=== PATIENT | male | born 1930 | race African-American/Black ===

== ENCOUNTER 2017-01-11 08:38 | Inpatient (IN) | payer MEDICARE, BC ==
--- NOTE | ~2017-01-11 | CN ---
Consultation Report [facility] [address] [facility] [place]. [address] NAME: GERALDO HAMPTON : 30 STATUS : ADM IN PAT#: [id number] AGE: 86 ADM/REG DATE : 01/11/17 MR#: [id number] REPORT SERV DATE: 01/12/17 DICTATED BY: VILMA MCKEON DATE: 01/11/17 REPORT STATUS : Draft TRANSCRIBED BY: MODL DATE: 01/11/17 SURGERY CONSULT DATE OF CONSULTATION: HISTORY OF PRESENT ILLNESS: This is an 86-year-old male, here with a five-day history of acute abdominal pain in his epigastrium, right upper quadrant, radiates to the back. He has never had any pain like this before. Pain is constant and had no real relief. He was in the ER on Thursday with similar pain, gotten pain medications, and pain has not really improved with the medication. 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 This was all diagnosed approximately three to four months ago. He is followed by Dr. Jacob Frias. Ultrasound today showed a distended gallbladder and no pericholecystic fluid just consistent with stones, gallbladder wall was mildly thickened at 4 mm. PAST MEDICAL HISTORY: Adenocarcinoma of the right lung, history of prostate cancer, diabetes, hypertension, he is status post right upper lobectomy by Dr. Avalos. 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 PAST SURGICAL HISTORY: Appendectomy, an exploratory laparotomy for some kind of gastric ulcer disease remotely, prostate radiation. REVIEW OF SYSTEMS: A 10-point review of systems negative except for mentioned in the HPI. PHYSICAL EXAMINATION: GENERAL: Alert and oriented. The patient appears to be uncomfortable in pain. VITAL SIGNS: Blood pressure 190/67, heart rate 105, temperature 98.6, respirations 16, greater than 95% on room air. HEENT: Normocephalic, atraumatic. NECK: Supple. No lymphadenopathy. CARDIOVASCULAR: Sinus tach. LUNGS: Clear. Bilateral chest wall movement. ABDOMEN: Tender in the epigastrium. Tender in the right upper quadrant. No rebound tenderness. No focal peritoneal signs. ASSESSMENT: An 86-year-old male with acute onset of right upper quadrant epigastric pain, symptomatic cholelithiasis, possible acute cholecystitis, pain also could be coming from his metastatic liver lesions. PLAN: We will admit the patient to the Medicine team for pain control and IV antibiotics. We will re-evaluate the patient in the morning for possible need for laparoscopic cholecystectomy. We will try nonoperative treatment at this time as this patient is a poor surgical candidate. Pain could be stemming from liver metastasis or . Consultation Report [address] [place]. [address] NAME: GERALDO HAMPTON : 30 STATUS : ADM IN PAT#: [id number] AGE: 86 ADM/REG DATE : 01/11/17 MR#: [id number] REPORT SERV DATE: 01/12/17 DICTATED BY: VILMA MCKEON DATE: 01/11/17 REPORT STATUS : Draft TRANSCRIBED BY: VARSHA DATE: 01/11/17 DICTATED BY: Lior Kaur MD CB/VARSHA Vilma Mckeon MD / [id number] CC: FARIDA ERICKSON M.D.
--- NOTE | ~2017-01-11 | HP ---
History And Physical [facility] [address] [facility] [place]. [address] NAME: GERALDO HAMPTON : 30 STATUS : ADM IN PAT#: [id number] AGE: 86 ADM/REG DATE : 01/11/17 MR#: [id number] REPORT SERV DATE: 01/11/17 DICTATED BY: DENAE ORR DATE: 01/11/17 REPORT STATUS : Draft TRANSCRIBED BY: MODL DATE: 01/11/17 DATE OF ADMISSION: 01/11/2017 CHIEF COMPLAINT: Epigastric and right upper abdominal pain, radiating to the back; intractable nausea and vomiting for about five to six days. HISTORY OF PRESENT ILLNESS: This is a very pleasant, 86-year-old gentleman. He has a history of metastatic lung cancer to the liver as well as prostate cancer that he received radiation treatment. The patient has had a right lobectomy. Currently, he is not receiving any treatment. He is under the care of Dr. Frias. His primary care provider is Dr. Gonzales Mueller. Presenting today to [facility], accompanied by his family with some right upper quadrant abdominal pain that started couple of days ago, radiating to the back, and some nausea and vomiting, and significant decreased appetite. It is important to note that the patient has been seen in the emergency room on the . He has been evaluated, treated with some pain and nausea medication and discharged home. However, the patient's symptoms have got worse, and as a result, the patient presented to [facility]. It is also important to note that the patient has liver metastatic disease and as I said history of lung cancer. The patient denies any hematemesis, melena. No hematochezia. No other complaints. It is important to note that two days ago on , the patient underwent a CT of the abdomen and pelvis, showing no GI or obstruction. Gallstones have been identified. There were questionable inflammatory changes in the gallbladder and there was a neoplasm in the left hilum and some atelectasis. Today, an ultrasound of the gallbladder has shown that the patient has gallbladder sludge, but no really evidence of biliary obstruction or acute cholecystitis with hepatic metastasis. The patient denies any chest pain. No increasing shortness of breath. No PND. No orthopnea. No diarrhea. More constipation. No hematemesis, melena. No hematochezia. After evaluation by Surgery, the patient has been admitted to Hospitalist Service for further evaluation and treatment. PAST MEDICAL HISTORY: Significant for lung cancer with liver metastasis, prostate cancer, hypertension, diabetes, hyperlipidemia, prior history of peptic ulcer disease. PAST SURGICAL HISTORY: Includes appendectomy, right lobectomy, right shoulder surgery, and an exploratory surgery for ulcer. SOCIAL HISTORY: The patient is denying tobacco, quit 30 years ago. No alcohol. No IV drugs. FAMILY HISTORY: Significant for congestive heart failure and cancer. ALLERGIES: HE IS ALLERGIC TO IODINE. MEDICATIONS AT HOME: Include allopurinol, Exforge, Lipitor, Catapres, fentanyl patch, hydrochlorothiazide, Glucophage, Lopressor, Zofran, Protonix, Zestril, and nasal spray over- the-counter. REVIEW OF SYSTEMS: History And Physical [address] [address] NAME: GERALDO HAMPTON : 30 STATUS : ADM IN [facility]#: [id number] AGE: 86 ADM/REG DATE : 01/11/17 MR#: [id number] REPORT SERV DATE: 01/11/17 DICTATED BY: DENAE ORR DATE: 01/11/17 REPORT STATUS : Draft TRANSCRIBED BY: VARSHA DATE: 01/11/17 A 14-point review of systems has been obtained and pertinent positive has been listed into the history of present illness. Otherwise, negative except those underlying above. PHYSICAL EXAMINATION: VITAL SIGNS: The patient is afebrile. Blood pressure 172/94, heart rate 101, respiratory rate 16, saturating 98% on room air. GENERAL: Very frail, but very pleasant appearing gentleman, in no acute distress. He is alert and oriented x3. He is nonfocal. He follows all commands appropriately. HEENT: Pupils are equal, round, reactive to light. Extraocular movements intact. No JVD. No lymphadenopathy. No thyromegaly appreciated. CHEST: Bilateral air entry. Decreased breath sounds bibasilarly. No wheezes, crackles, or rhonchi appreciated. CARDIOVASCULAR: Regular rate and rhythm. Slightly tachycardic. S1, S2 positive. No S3, no S4. No murmurs, rubs, or gallops appreciated. ABDOMEN: Soft, but there is tender on the epigastric and right upper quadrant area. No guarding. No rebound. EXTREMITIES: No clubbing, cyanosis, or edema. NEUROLOGIC: He is alert and oriented x3. Nonfocal. He follows all his commands appropriately. LABORATORY DATA: Labs from today include, sodium 139, potassium 4.3, chloride 102, CO2 of 28, BUN 28, creatinine 1.91, glucose is 116, calcium 10.9. His total protein is 8.1, albumin 3.4, globulin is 4.7. His total bilirubin is 1, alkaline phosphatase 284, ALT 140, AST 286. Lipase is 261. Also, his lactate is 2.1. White count 12.7, hemoglobin 13.7, hematocrit 43.2, and platelets are 169. His p.m. neutrophils are 9.65. His INR is 1.2. His UA that has been performed in the emergency room has been negative. Also, there is CT scan of the abdomen and pelvis that has been performed on 01/09/2017, showing no evidence of GI or obstruction. Gallstones identified with a questionable early inflammatory changes in the gallbladder and neoplasm in the left hilum with some atelectatic changes that has not significantly progressed since 10/16/2016. Gallbladder ultrasound performed in the emergency room showing that the patient has gallbladder sludge, but no evidence of acute cholecystitis or biliary obstruction and hepatic metastasis. ASSESSMENT: This is a very pleasant, 86-year-old gentleman with 1. Symptomatic cholelithiasis, possible cholecystitis with liver metastatic disease and abdominal pain. 2. Elevated liver function tests secondary to above. 3. History of hypertension. 4. History of metastatic lung disease as well as prostate cancer. 5. Acute kidney injury. 6. Hypertension. 7. Diabetes type 2, noninsulin dependent. 8. Hyperlipidemia. 9. Chronic back pain. PLAN: 1. The patient is going to be admitted to Hospitalist Service. We are going to keep him History And Physical [address] [address] NAME: GERALDO HAMPTON : 30 STATUS : ADM IN [facility]#: [id number] AGE: 86 ADM/REG DATE : 01/11/17 MR#: [id number] REPORT SERV DATE: 01/11/17 DICTATED BY: DENAE ORR DATE: 01/11/17 REPORT STATUS : Draft TRANSCRIBED BY: MODDurga DATE: 01/11/17 n.p.o. except medications. We are going to provide empiric antibiotics, pain control, IV fluids. We are going to consult Dr. Mckeon, Surgery for further recommendation. I will discuss with Surgery. We will evaluate the patient in a.m. for possible lap cholecystectomy if indicated. We are going to provide supportive care, pain and nausea control, n.p.o. past midnight. 2. Acute kidney injury. We are going to place a Barros catheter. We are going to check his studies with spot urine sodium, creatinine, and osmolality. IV fluids. Renal ultrasound. We are going to hold the diuretics as well as the valsartan and follow the labs very closely. 3. History of hypertension. We will continue his clonidine. We will continue his amlodipine and Lopressor. Provide p.r.n. hydralazine as needed. 4. Diabetes type 2, noninsulin dependent. While patient is n.p.o., Accu-Cheks q.6 hours, sliding scale insulin subcutaneously level 1, and check a hemoglobin A1c. 5. History of hyperlipidemia. We are going to hold his Lipitor currently. We are going to provide reasonable pain and nausea control as well as GI and DVT prophylaxis. That has been discussed extensively with the patient as well as the patient's family. All the questions have been answered in full. The patient wishes to remain a full code according to patient's prior wishes well stated. CF/MODL Denae Orr M.D. / [id number] CC: Luana Aguilera M.D.
--- NOTE | ~2017-01-11 | DS ---
Discharge Summary [facility] [address] [place]. [address] NAME: GERALDO HAMPTON : 30 STATUS : DIS IN PAT#: [id number] AGE: 86 ADM/REG DATE : 01/11/17 MR#: [id number] REPORT SERV DATE: 01/15/17 DICTATED BY: JACOBO SON DATE: 01/14/17 REPORT STATUS : Draft TRANSCRIBED BY: MODL DATE: 01/14/17 ADMISSION DATE: 01/11/2017 DISCHARGE DATE: 01/14/2017 DISCHARGE DIAGNOSES: 1. Metastatic lung cancer to the liver. 2. 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 3. Possibility of acute cholecystitis, ruled out by MRI. 4. Hypertension. 5. Acute kidney injury, most likely due to underlying cancer and the patient's poor p.o. intake. 6. Type 2 diabetes mellitus. 7. Gout. CONSULTANTS DURING THIS HOSPITALIZATION: Dr. Kyle Frias of Hematology-Oncology. Dr. Henri Mckeon of General and Colorectal Surgery. INVASIVE PROCEDURES DURING THIS HOSPITALIZATION: None. IMAGING DONE DURING THIS HOSPITALIZATION: MRI of the abdomen showing significant metastatic disease to the liver and lung cancer. BRIEF HISTORY OF PRESENT ILLNESS: The patient is an 86-year-old male with a known history of metastatic lung cancer, presented with pain in the epigastrium, thought to have acute cholecystitis, so he was admitted. For detailed history and physical exam, please see note dictated by Dr. Denae Ward on 01/11/2017. HOSPITAL COURSE: After being admitted to the hospital, this patient had significant problems with control of pain. He has ongoing pain control issue as well. Oncology saw the patient in consultation as well as General Surgery saw the patient in consultation. Initially, the thought was that the patient may need cholecystectomy due to his acute cholecystitis, however, after workup and looking at the MRI, it did not seem that acute cholecystitis was his problem. His pain was thought mainly due to the spread of his cancer, at that time, hospice was recommended. The patient was given broad-spectrum antibiotics and reasonable pain control during this hospital stay. All cultures have remained negative to date. The patient was seen by hospice and has been accepted to hospice. The [facility]. Family was updated and he is in agreement with this plan of care as well. DISCHARGE DISPOSITION: To hospice. DISCHARGE ACTIVITY: As tolerated. DISCHARGE DIET: As tolerated. DISCHARGE MEDICATIONS: Will be deferred to hospice. Discharge Summary [address] [place]. [address] NAME: GERALDO HAMPTON : 30 STATUS : DIS IN PAT#: [id number] AGE: 86 ADM/REG DATE : 01/11/17 MR#: [id number] REPORT SERV DATE: 01/15/17 DICTATED BY: JACOBO SON DATE: 01/14/17 REPORT STATUS : Draft TRANSCRIBED BY: VARSHA DATE: 01/14/17 DISCHARGE FOLLOWUP: Will be by to [facility]. About 30 minutes spent planning this patient's discharge, discussing hospice option with the family and updating family on all findings during this hospital stay as well as documenting this discharge. DICTATED BY: Luana Corbin/VARSHA Jacobo Son M.D. / [id number] CC: Luana Corbin M.D. Davey B. Daniel, M.D.
[~2017-01-11 08:38] MED LIST: ACET500CAP PO; ASA5GR PO; CAT1 PO; DURA75 TOP; EXFORGE1 TA3 PO; GLUCPH PO; LIPITOR40 PO; LOP50 PO; LORTAB 5 PO; MCZ25 PO; PRIN20 PO; Z300 PO; ZESTORETIC PO; ZOCOR40 PO
[2017-01-11 10:43] LABS: BASOPHILS 0.5 %; BASOPHILS ABSOLUTE 0.06 10/3/uL (0.0-0.16); EOSINOPHILS 0.3 %; EOSINOPHILS ABSOLUTE 0.04 10/3/uL (0.0-0.53); HEMATOCRIT 43.2 % (40.0-51.0); HEMOGLOBIN 13.7 g/dL (13.6-17.8); LYMPHOCYTES 8.9 %; LYMPHOCYTES ABSOLUTE 1.13 10/3/uL (0.67-4.30); MEAN CORPUS HGB CONC 31.7 g/dL (32.0-36.0); MEAN CORPUSCULAR HEMOGLOB 26.8 pg (26.0-34.0); MEAN CORPUSCULAR VOLUME 84.5 fL (80-100); MONOCYTES 14.6 %; MONOCYTES ABSOLUTE 1.86 10/3/uL (0.21-1.20); NEUTROPHILS 69.7 %; NEUTROPHILS ABSOLUTE 8.88 10/3/uL (2.02-8.40); PLATELET COUNT 169 10/3/uL (150-400); RBC DISTRIBUTION WIDTH 14.4 % (12.0-16.0); RED CELL COUNT 5.11 10/6/uL (4.7-6.1); WHITE BLOOD CELLS 12.7 10/3/uL (4.5-10.5)
[2017-01-11 10:44] LABS: IMMATURE GRANULOCYTES ABSOLUTE 0.77 10/3/uL (0.0-0.11); MANUAL DIFF NO %
[2017-01-11 10:48] LABS: ASCORBIC ACID (UR NOT ORDER) NEG (NEG); BILIRUBIN, URINE NEGATIVE (NEG); ER URINALYSIS TAT 0 Hrs 11 Mins; KETONE, URINE TRACE MG/DL (NEG); LEUKOCYTE ESTERASE(NOT OR TRACE (NEG); NITRITE (URINE) NEG (NEG); WBC (NOT ORDERED) (RFLEX) 2 (0-5)
[2017-01-11 10:58] LABS: A/G RATIO 0.7 (0.7-1.9); ALBUMIN 3.4 G/DL (3.5-5.0); ALKALINE PHOSPHATASE 284 U/L (45-117); BUN (BLOOD UREA NITROGEN) 28 MG/DL (6-23); CALCIUM, SERUM 10.9 MG/DL (8.5-10.4); CHLORIDE, SERUM 102 MMOL/L (96-112); CO2 (CARBON DIOXIDE) 28 MMOL/L (24-34); CREATININE 1.91 MG/DL (0.70-1.30); GFR AFRICAN AMERICAN 36 ML/MIN (>=60); GFR NON AFRICAN AMERICAN 31 ML/MIN (>=60); GLOBULIN 4.7 G/DL (2.5-4.1); GLUCOSE, SERUM 116 MG/DL (60-99); POTASSIUM, SERUM 4.3 MMOL/L (3.5-5.3); SGOT(AST) 286 U/L (5-40); SGPT(ALT) 140 U/L (5-65); SODIUM, SERUM 139 MMOL/L (135-148); TOTAL PROTEIN 8.1 G/DL (6.0-8.5)
[2017-01-11 11:14] LABS: BAND NEUTROPHILS 18 %; BASOPHILS 2 %; BASOPHILS ABSOLUTE (CALC) 0.25 10/3/uL (0.0-0.16); ER DIFF TAT 0 Hrs 37 Mins; IMMATURE GRANS ABSOLUTE (CALC) 0.51 10/3/uL (0.0-0.11); LYMPHOCYTES 8 %; LYMPHOCYTES ABSOLUTE (CALC) 1.02 10/3/uL (0.67-4.30); METAMYELOCYTES 4 %; MONOCYTES 10 %; MONOCYTES ABSOLUTE (CALC) 1.27 10/3/uL (0.21-1.20); NEUTROPHILS ABSOLUTE (CALC) 9.65 10/3/uL (2.02-8.40); SEGMENTED NEUTROPHIL (0) 58 %; TOTAL NUCLEATED CELLS 100
[2017-01-11 11:15] LABS: HYPOCHROMIA 1+ (3-10/OIF) (0-2/OIF); PLATELET ESTIMATE ADQ (ADEQUATE)
[2017-01-11 11:18] LABS: VACUOLATED NEUTROPHILES FEW
[2017-01-11] MEDS ORDERED: CAT1 PO (14:19)
[2017-01-11] MEDS ORDERED: LIPITOR40 PO (14:19)
[2017-01-11] MEDS ORDERED: EXFORGE1 TA3 PO (14:20)
[2017-01-11] MEDS ORDERED: GLUCPH PO (14:20)
[2017-01-11] MEDS ORDERED: LOP50 PO (14:20)
[2017-01-11] MEDS ORDERED: Z300 PO (14:21)
[2017-01-11] MEDS ORDERED: TRAZ50 PO (14:21)
[2017-01-11] MEDS ORDERED: HYDROCHLOROT12.5 MG PO (14:21)
[2017-01-11] MEDS ORDERED: ZOFRAN8 PO (14:22)
[2017-01-11] MEDS ORDERED: PROTONIX PO (14:22)
[2017-01-11] MEDS ORDERED: NASAL SPRAY OTC NAS (14:24)
[2017-01-11] MEDS ORDERED: DURA75 TOP (14:26)
[2017-01-11 16:30] LABS: FREE T4 1.67 NG/DL (0.76-1.46); PHOSPHORUS, SERUM 3.5 MG/DL (2.5-4.5); TROPONIN I <0.02 NG/ML (<0.05)
[2017-01-11 17:55] LABS: INTERNATIONAL NORMAL RATI 1.1 UNITS (-); PARTIAL THROMBO TIME 35.8 SEC (22.5-37.2); PROTIME (NOT ORD) 14.5 SEC (12.0-14.5)
[2017-01-12 08:21] LABS: GLYCOHEMOGLOBIN (HbA1c) 6.3 % (4.7-6.1)
[2017-01-12 10:07] LABS: INTERNATIONAL NORMAL RATI 1.3 UNITS (-); PROTIME (NOT ORD) 15.8 SEC (12.0-14.5)
[2017-01-12 10:18] LABS: A/G RATIO 0.7 (0.7-1.9); ALBUMIN 2.8 G/DL (3.5-5.0); BUN (BLOOD UREA NITROGEN) 30 MG/DL (6-23); CHLORIDE, SERUM 108 MMOL/L (96-112); CREATININE 1.65 MG/DL (0.70-1.30); GFR AFRICAN AMERICAN 43 ML/MIN (>=60); GFR NON AFRICAN AMERICAN 37 ML/MIN (>=60); GLOBULIN 4.3 G/DL (2.5-4.1); SGPT(ALT) 107 U/L (5-65); SODIUM, SERUM 140 MMOL/L (135-148); TOTAL PROTEIN 7.1 G/DL (6.0-8.5)
[2017-01-12 10:19] LABS: ALKALINE PHOSPHATASE 242 U/L (45-117); CALCIUM, SERUM 9.9 MG/DL (8.5-10.4); CO2 (CARBON DIOXIDE) 21 MMOL/L (24-34); GLUCOSE, SERUM 87 MG/DL (60-99); POTASSIUM, SERUM 4.6 MMOL/L (3.5-5.3); SGOT(AST) 240 U/L (5-40)
[2017-01-12 13:09] LABS: HEMOGLOBIN 11.5 g/dL (13.6-17.8); MEAN CORPUS HGB CONC 32.7 g/dL (32.0-36.0); MEAN CORPUSCULAR HEMOGLOB 27.1 pg (26.0-34.0); MEAN CORPUSCULAR VOLUME 82.8 fL (80-100); MEAN PLATELET VOLUME 9.7 fL (9.2-13.0); PLATELET COUNT 141 10/3/uL (150-400); RBC DISTRIBUTION WIDTH 14.8 % (12.0-16.0); RED CELL COUNT 4.25 10/6/uL (4.7-6.1); WHITE BLOOD CELLS 7.7 10/3/uL (4.5-10.5)
[2017-01-12 13:14] LABS: HEMATOCRIT 35.2 % (40.0-51.0); MANUAL DIFF YES %
[2017-01-12 13:49] LABS: BAND NEUTROPHILS 16 %; IMMATURE GRANS ABSOLUTE (CALC) 0.08 10/3/uL (0.0-0.11); LYMPHOCYTES 3 %; LYMPHOCYTES ABSOLUTE (CALC) 0.23 10/3/uL (0.67-4.30); METAMYELOCYTES 1 %; MONOCYTES 8 %; MONOCYTES ABSOLUTE (CALC) 0.62 10/3/uL (0.21-1.20); NEUTROPHILS ABSOLUTE (CALC) 6.78 10/3/uL (2.02-8.40); PLATELET ESTIMATE SLT DEC (ADEQUATE); SEGMENTED NEUTROPHIL (0) 72 %; TOTAL NUCLEATED CELLS 100
[2017-01-12 13:50] LABS: RBC MORPHOLOGY NORM (NORMAL)
[2017-01-13 05:38] LABS: HEMATOCRIT 34.4 % (40.0-51.0); HEMOGLOBIN 11.3 g/dL (13.6-17.8); MEAN CORPUS HGB CONC 32.8 g/dL (32.0-36.0); MEAN CORPUSCULAR HEMOGLOB 27.6 pg (26.0-34.0); MEAN CORPUSCULAR VOLUME 83.9 fL (80-100); MEAN PLATELET VOLUME 9.7 fL (9.2-13.0); NUCLEATED RED BLOOD CELLS 0.5 /100WBC (0-0); PLATELET COUNT 132 10/3/uL (150-400); RBC DISTRIBUTION WIDTH 14.7 % (12.0-16.0); WHITE BLOOD CELLS 8.1 10/3/uL (4.5-10.5)
[2017-01-13 05:39] LABS: MANUAL DIFF YES %
[2017-01-13 05:49] LABS: A/G RATIO 0.6 (0.7-1.9); ALBUMIN 2.3 G/DL (3.5-5.0); BUN (BLOOD UREA NITROGEN) 31 MG/DL (6-23); CALCIUM, SERUM 9.2 MG/DL (8.5-10.4); CHLORIDE, SERUM 112 MMOL/L (96-112); CO2 (CARBON DIOXIDE) 20 MMOL/L (24-34); CREATININE 1.55 MG/DL (0.70-1.30); GFR AFRICAN AMERICAN 46 ML/MIN (>=60); GFR NON AFRICAN AMERICAN 40 ML/MIN (>=60); GLOBULIN 3.7 G/DL (2.5-4.1); GLUCOSE, SERUM 81 MG/DL (60-99); POTASSIUM, SERUM 3.8 MMOL/L (3.5-5.3); SGOT(AST) 177 U/L (5-40); SGPT(ALT) 79 U/L (5-65); SODIUM, SERUM 144 MMOL/L (135-148); TOTAL BILIRUBIN 0.7 MG/DL (0-1.2)
[2017-01-13 05:55] LABS: ALKALINE PHOSPHATASE 197 U/L (45-117)
[2017-01-13 06:07] LABS: BAND NEUTROPHILS 7 %; BASOPHILS 1 %; BASOPHILS ABSOLUTE (CALC) 0.08 10/3/uL (0.0-0.16); EOSINOPHILS 1 %; EOSINOPHILS ABSOLUTE (CALC) 0.08 10/3/uL (0.0-0.53); LYMPHOCYTES 2 %; LYMPHOCYTES ABSOLUTE (CALC) 0.16 10/3/uL (0.67-4.30); MONOCYTES 10 %; MONOCYTES ABSOLUTE (CALC) 0.81 10/3/uL (0.21-1.20); NEUTROPHILS ABSOLUTE (CALC) 6.97 10/3/uL (2.02-8.40); PLATELET ESTIMATE SLT DEC (ADEQUATE); SEGMENTED NEUTROPHIL (0) 79 %; TOTAL NUCLEATED CELLS 100
[2017-01-13 06:08] LABS: ACANTHOCYTES OCC (0-2/OIF); BURR CELLS 1+ (3-10/OIF) (0-2/OIF); TEARDROP SHAPED RBCS FEW (3-10/OIF)
[2017-01-14 06:38] LABS: HEMATOCRIT 35.6 % (40.0-51.0); HEMOGLOBIN 11.5 g/dL (13.6-17.8); MANUAL DIFF YES %; MEAN CORPUS HGB CONC 32.3 g/dL (32.0-36.0); MEAN CORPUSCULAR HEMOGLOB 26.9 pg (26.0-34.0); MEAN CORPUSCULAR VOLUME 83.2 fL (80-100); MEAN PLATELET VOLUME 9.3 fL (9.2-13.0); PLATELET COUNT 137 10/3/uL (150-400); RBC DISTRIBUTION WIDTH 14.7 % (12.0-16.0); RED CELL COUNT 4.28 10/6/uL (4.7-6.1); WHITE BLOOD CELLS 8.1 10/3/uL (4.5-10.5)
[2017-01-14 06:50] LABS: ALBUMIN 2.4 G/DL (3.5-5.0); BUN (BLOOD UREA NITROGEN) 24 MG/DL (6-23); CALCIUM, SERUM 9.5 MG/DL (8.5-10.4); CHLORIDE, SERUM 111 MMOL/L (96-112); CO2 (CARBON DIOXIDE) 25 MMOL/L (24-34); CREATININE 1.35 MG/DL (0.70-1.30); GFR AFRICAN AMERICAN 55 ML/MIN (>=60); GFR NON AFRICAN AMERICAN 47 ML/MIN (>=60); GLUCOSE, SERUM 115 MG/DL (60-99); PHOSPHORUS, SERUM 2.7 MG/DL (2.5-4.5); POTASSIUM, SERUM 3.6 MMOL/L (3.5-5.3); SODIUM, SERUM 147 MMOL/L (135-148)
[2017-01-14 07:09] LABS: ACANTHOCYTES OCC (0-2/OIF); BAND NEUTROPHILS 3 %; BURR CELLS 1+ (3-10/OIF) (0-2/OIF); LYMPHOCYTES 7 %; LYMPHOCYTES ABSOLUTE (CALC) 0.57 10/3/uL (0.67-4.30); MONOCYTES 12 %; MONOCYTES ABSOLUTE (CALC) 0.97 10/3/uL (0.21-1.20); NEUTROPHILS ABSOLUTE (CALC) 6.56 10/3/uL (2.02-8.40); PLATELET ESTIMATE SLT DEC (ADEQUATE); SEGMENTED NEUTROPHIL (0) 78 %; TOTAL NUCLEATED CELLS 100
== END 2017-01-14 20:57 | disposition hospice, inpatient (51) | DRG 181 ==
LOC: ER 08:38 → 4SO 15:09
PROVIDERS: Hospitalist; Internal Medicine; Nurse Practitioner
DX: C34.90 Malignant neoplasm of unspecified part of unspecified bronchus or lung (principal); C78.7 Secondary malignant neoplasm of liver and intrahepatic bile duct; N17.9 Acute kidney failure, unspecified; C77.1 Secondary and unspecified malignant neoplasm of intrathoracic lymph nodes; E11.9 Type 2 diabetes mellitus without complications; I10 Essential (primary) hypertension; E78.5 Hyperlipidemia, unspecified; Z79.84 Long term (current) use of oral hypoglycemic drugs; Z79.899 Other long term (current) drug therapy; Z87.891 Personal history of nicotine dependence; Z85.46 Personal history of malignant neoplasm of prostate; Z85.118 Personal history of other malignant neoplasm of bronchus and lung; Z90.2 Acquired absence of lung [part of]; Z87.11 Personal history of peptic ulcer disease; Z91.048 Other nonmedicinal substance allergy status; K80.20 Calculus of gallbladder without cholecystitis without obstruction
CPT/HCPCS: 71010; 74176; 74181; 76705; 76775; 80048; 80053; 80069; 81001; 82140; 82150; 82570; 82962; 83036; 83605; 83615; 83690; 83735; 83880; 83935; 84100; 84145; 84300; 84439; 84443; 84484; 85025; 85610; 85730; 87040; 93005; 96365; 96374; 96375; 96376; 99285; A9270-GY; C9113; J0360; J2405; J2543; J2800; J3411